=== PATIENT | male | born 1970 | race Caucasian/White ===

== ENCOUNTER 2019-07-21 07:55 | Day surgery (SDC) | payer BC, SELFPAY ==
[2019-07-17 09:34] VITALS: BMI 33.5
[2019-07-21] VITALS (12 sets, daily range): BP systolic 76–132; BP diastolic 40–86; PULSE 40–62; RESP 12–18; TEMP 35.9–36.8; O2SAT 96–99; BMI 33.8
--- NOTE | 2019-07-21 | PATH_ITS ---
[facility] Accession Number: [id number] . 01 Material submitted: . hernia - RIGHT INGUINAL HERNIA SAC . 01 Clinical history: . UNILATERAL INGUINAL HERNIA, WITHOUT OBSTRUCTION . 02 Diagnosis: Right Inguinal Hernia Sac, Inguinal Hernia Repair: Portion of benign fibromembranous/fibroconnective tissue, consistent with hernia sac and contents. MRV 07/23/2019 1010 Local . 02 Electronically signed: . Kimberlee Duncan MD, Pathologist NPI- [id number] . 01 Gross description: . Received in formalin, labeled right inguinal hernia sac, is a piece of mcgrath-pink and harris-yellow fatty membranous tissue (10.7 x 1.7 x 1.5 cm). Custodial Supervisor serial sections submitted in cassette A1. ([id number]) /MRV 07/22/2019 1008 Local . 02 Pathologist provided ICD-10: K40.90 . 02 CPT . 956322 Performed at: 01 [facility] [address], [place], [place] [id number] MD Ted Atwood MD Phone: [phone] Performed at: 02 [facility] [address] [place], [place] [id number] MD Josi Mandujano MD Phone: [phone]
[2019-07-21] MEDS: LACTATED RINGERS 1,000 ML 42 ML IV (08:42)
--- NOTE | 2019-07-21 08:43 | PM.PREOP ---
Pre-operative Note Interval Note History & Physical reviewed/Exam performed by Physician: Yes Changes to H&P: No
[2019-07-21] MEDS: CEFAZOLIN 2 GM/100 ML FROZ.PIGGY IV (09:00)
--- NOTE | 2019-07-21 09:26 | SUR.OPER ---
Supine on padded OR bed, head on pillow, arms secured on padded arm boards at <90 degrees abduction, legs uncrossed, safety belt at thigh, tape over blanket over lower legs.
[2019-07-21] MEDS: BUPIVACAINE 0.25% (PF) VIAL 30 ML INJ (09:37)
--- NOTE | 2019-07-21 10:29 | PM.OP.1 ---
Operative Date/Time/Diagnoses Date of procedure: 07/21/19 Time of procedure: 10:29 Pre-op diagnosis: right inguinal herna Post-op diagnosis: same Procedure & Clinicians Procedure: Open right inguinal hernia repair with mesh Same procedure as scheduled: Yes Indications: 48-year-old male with a slowly enlarging and symptomatic right inguinal hernia presents for an elective open hernia repair with mesh Surgeon: Davy Mai Click Yes if Unassisted: Yes Anesthesia Type: General Operative Notes Findings: Direct and indirect right inguinal hernia Specimen(s): other (Hernia sac) Estimated Blood Loss (mL): 5 Procedure in detail: The patient was brought to the operating room and placed supine on the table. Bilateral lower extremity compression devices were applied. General anesthesia was induced and there were intubated with an LMA. There were then prepped and draped in usual sterile fashion. They received 2 g of Ancef prior to skin incision. A time-out was performed ensure the correct patient procedure necessary equipment within the operating room. I 1 finger breath above the right inguinal ligament the skin was infiltrated with 0.25% bupivacaine. The skin incision was made here and the subcutaneous tissues were divided with electrocautery. The external oblique aponeurosis was exposed. The external oblique aponeurosis was then opened along the direction of its fibers. The cord was identified and was freed from the floor of the inguinal canal at its medial aspect. The cord was then swept swept out of the way with the Jaclyn drain. A direct floor defect was identified. The cord was then skeletonized. The vas deferens and the testicular vessels were preserved and protected. There was an indirect hernia on the anterior medial aspect of the cord which was skeletonized away from the vas deferens and testicular blood supply. This indirect hernia was skeletonized back to the internal ring. The hernia sac was ligated with 3 0 Vicryl and then excised passed off the field as specimen, the proximal hernia sac reduced easily back through the internal ring. I selected the large Pro Loop hernia mesh. The inferior medial aspect of the mesh was anchored to the periosteum of the pubic tubercle with 0 Prolene and then was run continuously along the inferior edge of the mesh to the shelving edge of the inguinal ligament. Interrupted 0 Prolene suture was used to anchor the superior aspect of the mesh to the conjoined tendon in several places. The tails were then reapproximated around the spermatic cord loosely. The tails of the mesh were then tucked under the external oblique aponeurosis. The repair was checked for hemostasis. The wound was irrigated with sterile saline. The external oblique aponeurosis was reapproximated in a running fashion using 3 0 Vicryl. The subcutaneous tissues were reapproximated with 3 0 Vicryl skin closed with 4 0 Monocryl followed by the application of Dermabond. At the end of the operation ensure that both testicles were within the scrotum. The sponge instrument count at the end operation was correct. The patient emerged from anesthesia was extubated and transferred to the postoperative care unit in stable condition Complications: none Post-operative Condition: stable Disposition: same day surgery
--- NOTE | 2019-07-21 10:30 | SUR.PHASEI ---
Anesthesia at bedside and notified of pt bp of 76/40 and HR of 40. pt observed to be pale in color. IV fluids opened wide open and pt head lowered in bed. Pt given ephedrine via IV by Dr. Gonzales at 1031. pt in stable condition at this time.
[2019-07-21] MEDS: KETOROLAC 30 MG/ML VIAL IV (10:40)
[2019-07-21] MEDS: fentaNYL 100 MCG/2 ML INJ 50 MCG IV ×2 (10:47→10:54)
[2019-07-21] MEDS: OXYCODONE/ACETAMINOPHEN 5/325 TABLET 1 TAB PO ×2 (11:00→11:30)
== END 2019-07-21 11:50 | disposition home or self-care (01) ==
PROVIDERS: PCP Family Medicine; Visit Provider Surgery
PROC: (CPT 49505; principal; 2019-07-21 09:15)
DX: K40.90 Unilateral inguinal hernia, without obstruction or gangrene, not specified as recurrent (principal); I10 Essential (primary) hypertension
CPT/HCPCS: 49505; C1781; J0690; J1100; J1885; J2405; J2704; J3010

== ENCOUNTER → 2021-06-16 17:30 | Outpatient (CLI) | payer BC, SELFPAY ==
[2021-06-16 18:22] LABS: COVID19 -Nasal RAPID POSITIVE (Negative)
== END ==
PROVIDERS: PCP Family Medicine; Referring Provider Physician Assistant; Visit Provider Physician Assistant
DX: U07.1 COVID-19 (principal)
CPT/HCPCS: 87635

== ENCOUNTER → 2023-05-27 14:54 | Outpatient (CLI) | payer BC, SELFPAY ==
--- NOTE | 2023-05-27 | DI.RAD.S_ITS ---
PROCEDURE: XR CERVICAL SPINE 2V OR 3V INDICATIONS: NECK PAIN TECHNIQUE: 3 view(s) of the cervical spine were acquired. COMPARISON: None. FINDINGS: Bones: No fractures or dislocations to the C7 level. The lateral masses of C1 appear intact on the odontoid view. No suspicious bony lesions. Mild multilevel degenerative changes with disc height loss, endplate spurring, and facet arthropathy. Soft tissues: No prevertebral soft tissue swelling. IMPRESSION: Multilevel degenerative changes of the cervical spine. Dictated by: Keith Joseph M.D. on 05/28/2023 at 9:06 Approved by: Keith Joseph M.D. on 05/28/2023 at 9:27
== END ==
PROVIDERS: PCP Family Medicine; Referring Provider Family Medicine; Visit Provider Family Medicine
DX: M54.2 Cervicalgia (principal); M47.812 Spondylosis without myelopathy or radiculopathy, cervical region
CPT/HCPCS: 72040

== ENCOUNTER → 2023-06-13 07:12 | Outpatient (CLI) | payer BC, SELFPAY ==
--- NOTE | 2023-06-13 | DI.MRI.S_ITS ---
PROCEDURE: MR CERVICAL SPINE WO CON INDICATIONS: Cervicalgia TECHNIQUE: Noncontrast sagittal T1 spin echo and T2 fast spin echo, sagittal STIR, foraminal oblique sagittal T2 fast spin echo, and axial gradient echo or T2 fast spin echo through the cervical spine. COMPARISON: [facility], CR, XR CERVICAL SPINE 2V OR 3V, 05/27/2023, 15:09. FINDINGS: Image quality: Excellent. Alignment and Curvature: There is normal bony alignment. Bone Marrow: Marrow demonstrates normal overall signal. Spinal Cord: Visualized spinal cord has normal size and signal. No cerebellar tonsillar herniation. Paraspinous Soft Tissues: No paravertebral masses. Prevertebral soft tissues are normal in thickness. C2-C3: Mild right facet hypertrophy. No canal stenosis or foraminal stenosis. C3-C4: Congenitally short pedicles. Small central posterior disc protrusion mild indentation on the cord ventral surface. AP diameter of the canal is 8.1 mm. Mild right facet hypertrophy. Mild right foraminal narrowing. C4-C5: Congenitally short pedicles. Broad-based disc bulge indenting on the ventral cord surface. AP diameter of the canal is 8.1 mm. Bilateral uncovertebral joint hypertrophy. Moderate bilateral foraminal narrowing with flattening deformity on the exiting bilateral C5 nerve roots. C5-C6: Congenitally short pedicles. Left paracentral disc plus osteophyte, flattening the left ventral cord. AP diameter of the central canal is 10.2 mm. There is moderate narrowing of the left side of the canal. No significant foraminal narrowing. C6-C7: Congenitally short pedicles. Left paracentral disc plus osteophyte. Central canal measures 9.5 mm. There is moderate narrowing of the left side of the canal. Mild right foraminal narrowing. Mild to moderate left foraminal narrowing. C7-T1: Normal appearance. IMPRESSION: 1. Patient has underlying congenitally short pedicles. 2. Moderate canal stenosis at C3-C4 and C4-C5. At C5-C6 and C6-C7, there is moderate narrowing of the left side of the canal. 3. Moderate bilateral foraminal narrowing at C4-C5. Dictated by: James Mcgrath M.D. on 06/13/2023 at 8:49 Approved by: James Mcgrath M.D. on 06/13/2023 at 8:59
== END ==
PROVIDERS: PCP Family Medicine; Referring Provider Family Medicine; Visit Provider Family Medicine
DX: M48.02 Spinal stenosis, cervical region (principal); M50.30 Other cervical disc degeneration, unspecified cervical region
CPT/HCPCS: 72141

== ENCOUNTER → 2024-09-01 08:15 | Outpatient (CLI) | payer OTHER, SELFPAY ==
--- NOTE | 2024-09-01 08:17 | DI.ECHO.S_ITS ---
[facility]+ [facility] : : [address] [place] : : [id number] : : Phone: [phone] Echocardiogram Report + + :Name: DINESH CORTES Study Date: 09/01/2024 Height: 72 in : :Hospital ReadingLocation: Weight: 280 lb : : Gender: Male BSA: 2.5 m2 : :: 1970 Age: 53 yrs BP: 127/78 mmHg: :Reason For Study: HEART FAILURE : :Ordering Physician: JAYASHREE, : :CAREN Performed By: Lizette Haywood : :Referring: ANNE-MARIE BLANC : + + Interpretation Summary The ejection fraction is estimated to be 40-45%. There is mild global hypokinesis of the left ventricle. There is anterior wall hypokinesis. There is mild mitral regurgitation. There is mild aortic valve sclerosis. Procedure: A two-dimensional transthoracic echocardiogram with color flow and Doppler was performed. The study quality was technically difficult. There is no prior echocardiogram noted for this patient. A contrast injection of Definity was performed to improve assessment of LV function. The patient had occasional PVCs during the exam. The heart rate ranged between 66-76 bpm during the study. Left Ventricle: The left ventricle is mildly dilated. The estimated left ventricular end diastolic volume is 147 ml. The ejection fraction is estimated to be 40-45%. There is mild global hypokinesis of the left ventricle. There is anterior wall hypokinesis. Right Ventricle: Borderline right ventricular enlargement. The right ventricular systolic function is normal. Atria: The left atrial size is normal. Right atrial size is normal. There is no Doppler evidence for an interatrial shunt. Mitral Valve: The mitral valve leaflets appear mildly thickened, but open well. There is mild mitral regurgitation. Aortic Valve: The aortic valve is trileaflet. The aortic valve opens well. There is mild aortic valve sclerosis. There is no aortic valve stenosis. No aortic regurgitation is present. Tricuspid Valve: The tricuspid valve is normal in structure and function. There is trace tricuspid regurgitation. Pulmonary artery pressures cannot be estimated because of the lack of a measurable TR jet velocity. Pulmonic Valve: The pulmonic valve leaflets are thin and pliable; valve motion is normal. There is mild pulmonic regurgitation. Great Vessels: The aortic root is normal size. The dimensions of the ascending aorta are normal. The IVC is of normal diameter and collapses greater than 50% with a sniff. This suggests a low right atrial pressure of 3 mm Hg. Pericardium/ Pleura There is no pericardial effusion. There is no pleural effusion. MMode/2D Measurements & Calculations LVIDd: 6.5 cm LVOT diam: 2.4 cm LVIDs: 5.2 cm Ao root diam: 3.5 cm FS: 20.2 % asc Aorta Diam: 3.6 cm EPSS: 1.6 cm Ao Arch Diam (Prox Trans): 3.2 cm IVSd: 0.99 cm LVPWd: 0.94 cm LV gambino. diameter/BSA (cm/m^2): 2.7 LV sys. diameter/BSA (cm/m^2): 2.1 LA A2 area: 23.2 cm2 RA long axis: 5.4 cm LA A4 area: 21.6 cm2 RA area: 15.6 cm2 LA length (vol): 5.7 cm RA vol: 38.1 ml LA vol: 74.7 ml RA : 15.5 ml/m2 LA vol index: 30.4 ml/m2 IVC diam: 1.2 cm RVD1 (basal): 4.2 cm RVD2 (mid): 3.1 cm TAPSE: 2.0 cm Doppler Measurements & Calculations Ao V2 max: 132.2 cm/sec LVOT Max Cooper: 82.4 cm/sec Ao V2 mean: 96.2 cm/sec LV V1 max P.7 mmHg Ao max P.0 mmHg LV V1 VTI: 15.6 cm Ao mean P.0 mmHg GUILLERMO(I,D): 2.6 cm2 Ao V2 VTI: 27.5 cm GUILLERMO(V,D): 2.9 cm2 sev ratio: 0.57 GUILLERMO indexed to BSA (cm^2/m^2): 1.1 MV E max cooper: 75.0 cm/sec PA V2 max: 144.5 cm/sec MV A max cooper: 67.3 cm/sec PA V2 mean: 93.6 cm/sec MV E/A: 1.1 PA mean P.1 mmHg Med Peak E' Cooper: 6.5 cm/sec E/E' med: 11.5 Lat Peak E' Cooper: 9.8 cm/sec E/E' lat: 7.7 E/e' average: 9.6 MV dec time: 0.23 sec SV(LVOT): 71.9 ml Reading Physician:11:10 AM
== END ==
LOC: ECHO 08:17
PROVIDERS: PCP Family Medicine; Referring Provider Family Medicine; Visit Provider Family Medicine
DX: I08.0 Rheumatic disorders of both mitral and aortic valves (principal); I50.9 Heart failure, unspecified; I11.0 Hypertensive heart disease with heart failure
CPT/HCPCS: C8929; Q9957

== ENCOUNTER → 2024-09-28 13:36 | Outpatient (CLI) | payer OTHER, SELFPAY ==
--- NOTE | 2024-09-28 13:37 | DI.NM.S_ITS ---
PROCEDURE: NM SUHAIL PERF SPECT REST & STR Rest and exercise myocardial perfusion SPECT with gated imaging and ejection fraction RADIOPHARMACEUTICAL: 26.8 mCi Tc-99m sestamibi IV at rest and 27.1 mCi Tc-99m sestamibi IV at peak exercise. A [id number] was performed. INDICATIONS: CARDIOMYOPAHTY TECHNIQUE: Radiopharmaceutical was injected at peak stress test, and also at rest. SPECT images were obtained. SPECT myocardial perfusion images were displayed in short axis, horizontal long axis, and vertical long axis views. Gated images were reviewed using [employer] software. COMPARISON: None. CARDIAC STRESS: A standard Tre treadmill exercise tolerance test was performed by the patient under the supervision of an attending staff. The patient exercised for 8 minutes and 48 seconds; 10.1 METS; functional aerobic impairment (MATTY) is +7%. Hemodynamic data: There is normal blood pressure and heart rate response to exercise stress. Patient achieved 94% of maximum predicted heart rate at peak exercise. Peak blood pressure 180/81. Symptoms: Patient denied chest pain during exercise. EKG: Rest ECG sinus rhythm 70 bpm frequent PVCs. Exercise ECG sinus tachycardia occasional PVCs, no ST segment changes. In recovery, patient had multiple episodes of nonsustained ventricular tachycardia up to 9 beats. FINDINGS: Raw data: There is good myocardial labeling by radiotracer. No significant motion artifacts. Left ventricle function: Gated images demonstrate reduced left ventricle wall thickening. No segmental wall motion abnormality. No transient ischemic dilation; TID is 1.1 (normal less than 1.3). The left ventricle resting end-diastolic volume is 200 mL. Left ventricle stress ejection fraction is 42%; normal values are above 45%. Myocardial perfusion: There is normal distribution of activity in the left and right ventricular myocardium. No fixed or reversible perfusion defects. IMPRESSION: Equivocal study. No evidence of exercise-induced ischemia on SPECT imaging. Frequent resting PVCs that did occur throughout exercise and worsened in recovery, degenerating to many episodes of nonsustained ventricular tachycardia. Dilated left ventricle with reduced systolic function. Normal hemodynamic response with exercise. Slightly reduced exercise capacity. Test result discussed with ordering provider, Dr. Fierro. Dictated by: Mckenna Meyers D.O. on 10/07/2024 at 16:26 Approved by: Mckenna Meyers D.O. on 10/07/2024 at 16:44
== END ==
PROVIDERS: PCP Family Medicine; Referring Provider Family Medicine; Visit Provider Family Medicine
DX: I42.9 Cardiomyopathy, unspecified (principal)
CPT/HCPCS: 78452; 93017; A9502

== ENCOUNTER → 2025-04-23 07:59 | Outpatient (CLI) | payer BC, SELFPAY ==
--- NOTE | 2025-04-23 08:01 | DI.ECHO.S_ITS ---
[place] +---------+ [facility] : : [address] : : [place] : : [id number] : : Phone: [phone] Echocardiogram Report + + :Name: DINESH CORTES Study Date: 04/23/2025 Height: 72 in : :Hospital ReadingLocation: Weight: 280 lb : : Gender: Male BSA: 2.5 m2 : :: 1970 Age: 54 yrs BP: 163/91 mmHg: :Reason For Study: SYSTOLIC HEART FAILURE : :Ordering Physician: ANJU JASSO Performed By: Terrance Bay : :Referring: ANJU JASSO : + + Interpretation Summary TDS - POOR WINDOWS, LUNG INTERFERENCE 1. The left ventricular contractility is borderline. Estimated ejection fraction is approximately 50 to 55% with no segmental wall motion abnormalities. No LVH. Normal diastolic function. 2. The right ventricle was not well-visualized. In limited views, the contractility appears to be preserved. 3. Left ventricular enlargement noted with LVEDD of 7.0 cm. Mildly dilated right ventricle. The left atrium is also mildly dilated. 4. Mild pulmonic insufficiency. 5. No obvious intracardiac shunts. 6. No obvious intracardiac masses nor thrombi. 7. No hemodynamically significant pericardial effusion. Conclusion: Low normal left ventricular systolic function with significant left ventricular enlargement.. When compared with previous echocardiogram, there does appear to be an improvement in the left ventricular contractility but an increase in the left ventricular end-diastolic dimension. Procedure: A two-dimensional transthoracic echocardiogram with color flow and Doppler was performed. A contrast injection of Definity was performed to improve assessment of LV function. The study quality was technically difficult. Comparison is made with the echocardiogram of 09/01/2024. The patient was in normal sinus rhythm during the exam. Left Ventricle: The left ventricle is moderately dilated. There is normal left ventricular wall thickness. There is no ventricular septal defect visualized. The ejection fraction is estimated to be 50-55%. Right Ventricle: The right ventricle is mildly dilated. The right ventricular systolic function is normal. Atria: The left atrium is mildly dilated. Right atrial size is normal. There is no Doppler evidence for an interatrial shunt. Mitral Valve: The mitral valve leaflets appear mildly thickened, but open well. There is trace mitral regurgitation. Aortic Valve: The aortic valve is trileaflet. The aortic valve opens well. No aortic regurgitation is present. Tricuspid Valve: The tricuspid valve is not well visualized, but is grossly normal. No tricuspid regurgitation. Pulmonic Valve: The pulmonic valve leaflets are thin and pliable; valve motion is normal. There is mild pulmonic regurgitation. Great Vessels: The aortic root is normal size. The ascending aorta is at the upper limits of normal in size. The pulmonary artery is normal size. The inferior vena cava was not visualized. Pericardium/ Pleura There is no pericardial effusion. MMode/2D Measurements & Calculations LVIDd: 7.0 cm LVOT diam: 2.3 cm LVIDs: 5.4 cm Ao root diam: 3.6 cm FS: 21.9 % asc Aorta Diam: 3.8 cm EPSS: 1.4 cm IVSd: 1.0 cm LVPWd: 0.99 cm LV gambino. diameter/BSA (cm/m^2): 2.8 LV sys. diameter/BSA (cm/m^2): 2.2 LA A2 area: 20.7 cm2 RA long axis: 4.3 cm LA A4 area: 29.4 cm2 RA area: 14.3 cm2 LA length (vol): 6.8 cm RA vol: 40.8 ml LA vol: 76.1 ml RA : 16.6 ml/m2 LA vol index: 31.0 ml/m2 RVD1 (basal): 4.0 cm RVD2 (mid): 3.7 cm TAPSE: 2.8 cm Doppler Measurements & Calculations Ao V2 max: 144.3 cm/sec LVOT Max Cooper: 108.1 cm/sec Ao V2 mean: 104.9 cm/sec LV V1 max P.7 mmHg Ao max P.3 mmHg LV V1 VTI: 25.4 cm Ao mean P.8 mmHg GUILLERMO(I,D): 3.0 cm2 Ao V2 VTI: 33.9 cm GUILLERMO(V,D): 3.0 cm2 sev ratio: 0.75 GUILLERMO indexed to BSA (cm^2/m^2): 1.2 MV E max cooper: 57.7 cm/sec PA V2 max: 130.0 cm/sec MV A max cooper: 71.3 cm/sec PA V2 mean: 91.4 cm/sec MV E/A: 0.81 PA mean P.7 mmHg Med Peak E' Cooper: 6.5 cm/sec PA pr(Accel): 51.6 mmHg E/E' med: 8.8 Lat Peak E' Cooper: 9.6 cm/sec E/E' lat: 6.0 E/e' average: 7.4 MV dec time: 0.21 sec SV(LVOT): 101.9 ml Reading Physician:GERDA
== END ==
PROVIDERS: PCP Family Medicine; Referring Provider Internal Medicine; Visit Provider Internal Medicine
DX: I50.22 Chronic systolic (congestive) heart failure (principal); I37.1 Nonrheumatic pulmonary valve insufficiency
CPT/HCPCS: C8929; Q9957